=== PATIENT | male | born 1980 | race Caucasian/White ===

== ENCOUNTER 2022-09-29 12:10 | Outpatient (CLI) | payer OTHER ==
[2022-09-29] MEDS ORDERED: GADOBUTROL 7.5 MMOL/7.5 ML VIAL ONE (12:16)
[2022-09-29] MEDS ORDERED: LIDOCAINE-MPF 1% 5 ML VIAL ONE (12:17)
[2022-09-29] MEDS ORDERED: GADOBUTROL 7.5 MMOL/7.5 ML VIAL IVP ONE (14:29)
[2022-09-29] MEDS ORDERED: LIDOCAINE-MPF 1% 5 ML VIAL TD ONE (14:30)
--- NOTE | 2022-09-29 17:55 | XRAY Report ---
PROCEDURE: Arthrogram Needle Placement INDICATIONS: LEFT SHOULDER PAIN FLUOROSCOPY TIME: 0.2 TECHNIQUE: The indications, alternatives, benefits, risks, and complications of the procedure were explained to the patient. Written informed consent was obtained and placed in the chart. The shoulder was examin ed fluoroscopically and a site for needle placement chosen for entry into the glenohumeral joint from an anterior approach. The skin was prepped and draped in the usual fashion, and 1% lidocaine infilt rated from skin down to joint capsule. A spinal needle was inserted into the glenohumeral joint, and a small amount of iodinated contrast media injected to confirm intra-articular placement of the need le tip. This was followed by approximately 12 mL dilute solution of a gadolinium containing MR contr ast agent. The needle was removed and a dressing was applied. The patient was given postprocedural instructions and sent to the MR suite for MR imaging. FINDINGS: A single fluoroscopic spot image demonstrates intra-articular location of injected iodinated contrast . IMPRESSION: Successful fluoroscopically guided administration of dilute Gadolinium solution into the shoulder anel glez for MR arthrogram. Reviewed by: Myron Gore MD on 09/29/2022 5:54 PM PDT Approved by: Myron Gore MD on 09/29/2022 5:54 PM PDT Station ID: [id number]
--- NOTE | 2022-09-29 18:01 | MRI Report ---
PROCEDURE: ARTHROGRAM SHOULDER - LT INDICATIONS: LEFT SHOULDER PAIN TECHNIQUE: After the administration of 12 mL of dilute intra-articular Gadolinium contrast, oblique coronal T1 a nd T2 spin echo with fat saturation, oblique sagittal T1 spin echo with and without fat saturation, o blique sagittal T2 fast spin echo with fat saturation, axial T1 spin echo with fat saturation through the shoulder. COMPARISON: None. FINDINGS: Image quality: Excellent. Rotator cuff: Low to moderate grade articular and bursal surface partial-thickness tear involving dis shani supraspinatus at its insertion on humeral head is seen extending to musculotendinous junction. D istal infraspinatus tendinosis is seen. Distal subscapularis tendon is grossly intact. No full-thickn ess rotator cuff tendon rupture. No rotator cuff muscle atrophy on sagittal images. Bones and bursae: No bone marrow contusions or fractures. Mild acromioclavicular joint osteoarthriti c changes are seen with joint space narrowing and downward osteophyte formation depressing on musculo tendinous junction of supraspinatus. Capsule and soft tissues: There is signal abnormality, contour irregularity and contrast extension in superior anterior labrum at 12 to 2:00 position consistent with superior anterior labral tear. The g lenohumeral ligaments appear intact. The long head of the biceps tendon appears thickened intra-pita cularly. The rotator interval appears normal, without fibrosis. The coracohumeral ligament is of nor mal thickness. No intra-articular bodies. IMPRESSION: 1. Low to moderate grade articular and bursal surface partial-thickness involving distal supraspinatu s extending to musculotendinous junction. Distal infraspinatus tendinosis. No full-thickness rotator cuff tendon rupture. 2. Mild acromioclavicular joint osteoarthritis. No fracture or dislocation. No gross loose bodies. 3. Suggestion of superior anterior labral tear at 12 to 2:00 position. 4. Proximal long head of biceps tendinosis. Reviewed by: Alexander Amezquita MD on 09/29/2022 5:00 PM AKDT Approved by: Alexander Amezquita MD on 09/29/2022 5:00 PM AKDT Station ID: [id number]
== END 2022-09-29 12:11 | disposition home or self-care (01) ==
LOC: DI 12:10
PROVIDERS: ATTEND Student in an Organized Health Care Education/Training Program
DX: M75.112 Incomplete rotator cuff tear or rupture of left shoulder, not specified as traumatic (principal); M19.012 Primary osteoarthritis, left shoulder; M67.88 Other specified disorders of synovium and tendon, other site
CPT/HCPCS: 23350; 73222; 77002; A9585; Q9965

== ENCOUNTER 2023-04-15 13:07 | Emergency (ER) | payer OTHER ==
--- NOTE | 2023-04-15 13:53 | XRAY Report ---
PROCEDURE: Ankle 3 View RT INDICATIONS: Trauma TECHNIQUE: 3 views of the ankle were acquired. COMPARISON: None. FINDINGS: Bones: No acute appearing fractures or dislocations. Bony irregularity is seen of the distal medial malleolus, which is attributed to a remote fracture. Ankle mortise is normally aligned. No suspiciou s bony lesions. Soft tissues: Soft tissue swelling is seen laterally. IMPRESSION: Soft tissue swelling is seen. No findings of acute fracture are seen. However, if there is point tenderness (or other clinical conc jordan for a fracture not seen on these plain films) then please consider a short-term follow-up plain f ilm series or CT for further evaluation. Apparent remote injury of the medial malleolus. Reviewed by: Bam Harp MD on 04/15/2023 12:52 PM [facility]ERYL Approved by: Bam Harp MD on 04/15/2023 12:52 PM CHERYL Station ID: [id number]
--- NOTE | 2023-04-15 14:19 | ED Physician Documentation ---
History of Present Illness - Stated complaint Stated Complaint: RT INJURY/ROLLED ANKLE - Chief complaint Chief Complaint: Trauma Ext - Additonal information Additional information: He rolled his ankle stepping off a step last night. [place] like the ankle popped out of joint. Unable to bear weight since. No history of previous injury. Review of Systems Musculoskeletal: reports: Joint pain PD PAST MEDICAL HISTORY - Allergies Allergies/Adverse Reactions: Allergies Allergy/AdvReac Type Severity Reaction Status Date / Time No Known Drug Allergies Allergy Verified 04/15/23 13:21 PD ED PE EXPANDED - Extremities Extremities: Right ankle (Moderate swelling and ecchymosis right lateral malleolus. Most of the tenderness with palpation of the distal malleolus and just below. Full range of motion as well as normal dorsi and plantarflexion. Unwilling to bear weight.) Results - Vitals Vitals: Vital Signs - 24 hr 04/15/23 13:21 Temperature 36.7 C Heart Rate 60 Respiratory 16 Rate Blood Pressure 134/88 H O2 Saturation 97 Oxygen O2 Source Room air - Rads (name of study) right ankle xr Relevant Findings:: Final report received (No acute fracture or dislocation) PD Medical Decision Making - ED course Complexity details: reviewed results, re-evaluated patient, d/w patient ED course: 43-year-old male here for acute right ankle injury after rolling the foot when stepping off a porch last night. He felt like he dislocated the ankle. On presentation moderate swelling and ecchymosis to the distal malleoli region. Unable to bear weight. And x-rays interpreted by the radiologist showed no acute fracture. Given the history and description I suspect this is likely a severe sprain. He is placed in an Aircast and given crutches. However advised that if symptoms, pain, swelling inability to bear weight not markedly better in 7 to 10 days the foot should be raphael-rayed. Recommend meloxicam and Tylenol at home. The usual emergent return precautions for worsening symptoms discussed. Departure - Departure Disposition: 01 Home, Self Care Clinical Impression: Right ankle sprain Qualifiers: Encounter type: initial encounter Involved ligament of ankle: unspecified ligament Qualified Code(s): S93.401A - Sprain of unspecified ligament of right ankle, initial encounter Condition: Stable Record reviewed to determine appropriate education?: Yes Instructions: ED Splint Ankle Stirrup, ED Sprain Ankle Comments: Rodrick the x-ray of your ankle does not show an obvious broken bone. However the history of your inversion injury last night speaks to a fairly severe sprain. In general I would like you to wear the Aircast when out of bed for the next 7 to 10 days. I would like you to take Tylenol 500 mg 3 times a day or alternate with meloxicam for discomfort. If your ability to bear weight is not markedly better in 7 to 10 days you should have this ankle re x-rayed in case there was an occult or difficult to see fracture that was missed.
[2023-04-15 14:38] VITALS: BP 128/88; O2SAT 98
== END 2023-04-15 14:31 | disposition home or self-care (01) ==
LOC: ED 13:07
DX: S93.401A Sprain of unspecified ligament of right ankle, initial encounter (principal); X50.1XXA Overexertion from prolonged static or awkward postures, initial encounter
CPT/HCPCS: 99283

== ENCOUNTER 2023-05-31 15:41 | Outpatient (CLI) | payer OTHER ==
--- NOTE | 2023-06-02 08:49 | MRI Report ---
PROCEDURE: ANKLE WO - RT INDICATIONS: RIGHT ANKLE PAIN TECHNIQUE: Noncontrast Magnetic Resonance Imaging (MRI) of the ankle/hindfoot was performed utilizing the follow ing sequences: sagittal T1 spin echo, sagittal T2 fast spin echo with fat saturation, axial PD fast s pin echo, axial T2 fast spin echo with fat saturation, coronal T1 spin echo, and coronal T2 fast spin echo with fat saturation. COMPARISON: Right ankle radiographs 04/15/2023 FINDINGS: Image quality: Excellent. Bones and joints: Osseous edema is seen at the anterior tibial plafond and at the medial aspect of the talar head and n [place]. Small tibiotalar effusion. No discrete fracture line is seen. No hindfoot coalition. The ankle m ortise is maintained. No osteochondral defect is seen at the talar dome. Medial structures: There is increased signal and partial disruption of the deep fibers of the deltoid ligament. The spri ng ligament complex is intact. There is mild distal posterior tibialis tenosynovitis. The flexor digi torum longus and flexor hallucis longus tendons are intact. The posterior tibial neurovascular bundle appears normal within the tarsal tunnel, without extrinsic mass effect. Lateral structures: The anterior and posterior distal tibiofibular ligaments are intact. There is high-grade versus compl ete tearing of the anterior talofibular ligament and the calcaneofibular ligament, which may be subac orestes or chronic. The peroneus brevis and longus tendons demonstrate mild tendinosis and tenosynovitis. Mild partial effacement of the normal fat in the sinus tarsi is noted. Anterior structures: The tibialis anterior, extensor hallucis longus, and extensor digitorum longus tendons appear intact. Posterior and plantar structures: The Achilles tendon is intact. There is thickening of the proximal plantar fascia without surrounding edema, consistent with chronic fasciopathy. No disproportionate atrophy of the abductor digiti minim i muscle. IMPRESSION: 1.Mild osseous contusions at the medial talar head and neck and the anterior tibial plafond. No discr ete fracture line is seen. 2.Grade 2-3 sprains of the anterior talofibular ligament and the calcaneofibular ligament. 3.Mild to moderate peroneus brevis and longus tendinosis and tenosynovitis. 4.Grade 2 sprain of the deltoid ligament. 5.Mild distal posterior tibialis tendinosis and tenosynovitis. 6.Mild chronic proximal plantar fasciitis. Reviewed by: Dionte Seo MD on 06/02/2023 8:48 AM PST Approved by: Dionte Seo MD on 06/02/2023 8:48 AM PST Station ID: [id number]
== END 2023-05-31 15:42 | disposition home or self-care (01) ==
LOC: DI 15:41
PROVIDERS: ATTEND Student in an Organized Health Care Education/Training Program
DX: S93.491A Sprain of other ligament of right ankle, initial encounter (principal); S93.411A Sprain of calcaneofibular ligament of right ankle, initial encounter; S80.11XA Contusion of right lower leg, initial encounter; S90.31XA Contusion of right foot, initial encounter; S93.421A Sprain of deltoid ligament of right ankle, initial encounter; M72.2 Plantar fascial fibromatosis; M67.971 Unspecified disorder of synovium and tendon, right ankle and foot